=== PATIENT | female | born 2005 | race Caucasian/White ===

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

== ENCOUNTER → 2024-11-14 | Outpatient (CLI) | payer OTHER ==
[~2024-11-14] MED LIST changes: +Augmentin 875-1 EACH PO; +ESCI10 PO
[2024-11-15 06:58] LABS: Candida glabrata-krusei, PCR NOT DETECTED (NOT DETECT)
[2024-11-15 07:27] LABS: Chlamydia Trachomatis Vaginal NOT DETECTED (NOT DETECT); Neisseria Gonorrhoea Vaginal NOT DETECTED (NOT DETECT)
[2024-11-15 08:43] LABS: Bacterial Vaginosis PCR Positive (NEGATIVE); Candida Group, PCR DETECTED (NOT DETECT)
== END ==
LOC: LAB 18:16 → LAB SHORT 18:16
PROVIDERS: Registered Nurse Community Health
DX: Z11.3 Encounter for screening for infections with a predominantly sexual mode of transmission (principal); Z20.2 Contact with and (suspected) exposure to infections with a predominantly sexual mode of transmission
CPT/HCPCS: 81515; 87491; 87591